=== PATIENT | male | born 1965 | race Caucasian/White ===

== ENCOUNTER 2019-02-15 10:14 | Emergency (ER) | payer BC ==
[2019-02-15] MEDS ORDERED: Sodium Chloride 0.9% 10 ML Syringe FLUSH PRN (10:17)
[2019-02-15 10:33] VITALS: BP 137/76; PULSE 71
[2019-02-15] MEDS ORDERED: Aspirin 81 MG Tab.Chew PO ONE (10:34)
[2019-02-15 10:52] LABS: ANION GAP 12.8; CHLORIDE,CL 100 mmol/L (101-111); SODIUM,NA 135 mmol/L (135-145)
--- NOTE | 2019-02-15 10:58 | CR ---
EXAMINATION: Chest 1V Frontal SEX: Male AGE: 53 years CLINICAL HISTORY: 53-year-old male emergency department complaining of chest pain. INTERPRETATION: No comparison films. Reasonable inspiratory, effort large body habitus. 1. Normal cardiac silhouette without cephalization of vascular flow, alveolar edema or dependent effusion. 2. No lung mass, hilar lymphadenopathy or focal lobar pneumonia. 3. No infiltrate/atelectasis or collapse. 4. No pneumothorax, pneumomediastinum or free subdiaphragmatic air. 5. No foreign bodies. Yi thorax unremarkable (single AP projection). CONCLUSION: No acute cardiopulmonary abnormality.
[2019-02-15] MEDS ORDERED: Iopamidol 755 Mg/ML 100 ML Bottle IVPUSH ONE (11:17)
--- NOTE | 2019-02-15 11:31 | EDM.PDOC ---
ED HPI GENERAL MEDICAL PROBLEM - General Chief Complaint: Chest Pain Stated Complaint: CHEST PAIN AND BACK PAIN Time Seen by Provider: 02/15/19 10:35 Source of Information: Reports: Patient, RN, RN Notes Reviewed History Limitations: Reports: No Limitations - History of Present Illness INITIAL COMMENTS - FREE TEXT/NARRATIVE: Patient presents to ER with complaint of chest and back pain. patient states he awoke at 0700 today with mid thoracic muscle pain began to wrap around the back to the midepigastric area. Denies N/V/D. last bowel movement yesterday normal for him. States history of hypertension for which he takes medications for, and history of stroke-like symptoms in 2014. States he takes a baby aspirin which he took this morning. patient states increased pain on inspiration, and feeling of shortness of breath. Patient denies radiation of pain into the neck, jaw, or left arm. Patient denies recent illness, cough, fever, chills. Admits to history of indigestion at times, denies problems with anxiety, but does admit to high stress levels.rates pain 07/01. Onset: Today, Sudden Duration: Constant Location: Reports: Chest, Abdomen, Back Quality: Reports: Dull, Pressure Severity: Moderate Improves with: Reports: None Right Chest Pain Score (Numeric/FACES): 3 - Related Data Allergies Allergy/AdvReac Type Severity Reaction Status Date / Time No Known Allergies Allergy Verified 02/15/19 10:33 Home Meds: Home Meds Aspirin [Halfprin] 81 mg PO DAILY 11/09/17 [History] Lisinopril 10 mg PO DAILY 11/09/17 [History] Metoprolol Succinate 100 mg PO DAILY 11/09/17 [History] amLODIPine Besylate [Amlodipine Besylate] 10 mg PO DAILY 11/09/17 [History] atorvaSTATin Calcium [Atorvastatin Calcium] 80 mg PO BEDTIME 11/09/17 [History] Past Medical History - Past Health History Medical/Surgical History: Denies Medical/Surgical History Cardiovascular History: Reports: High Cholesterol, Hypertension Neurological History: Reports: CVA, Other (See Below) Other Neuro History: HYPERTENSIVE ENCEPHALOPATHY Endocrine/Metabolic History: Reports: Obesity/BMI 30+ Dermatologic History: Reports: Other (See Below) Other Dermatologic History: ACTINIC KERATOSIS - Past Surgical History Neurological Surgical History: Reports: None Musculoskeletal Surgical History: Reports: Arthroscopic Knee Social & Family History - Tobacco Use Smoking Status *Q: Former Smoker Years of Tobacco use: 0 Packs/Tins Daily: 0 Used Tobacco, but Quit: Yes Month/Year Tobacco Last Used: 2014 - Alcohol Use Days Per Week of Alcohol Use: 1 Number of Drinks Per Day: 5 Total Drinks Per Week: 5 - Recreational Drug Use Recreational Drug Use: No - Living Situation & Occupation Living situation: Reports: , with Family Occupation: Employed ED ROS GENERAL - Review of Systems Review Of Systems: ROS reveals no pertinent complaints other than HPI. ED EXAM, GENERAL - Physical Exam Exam: See Below Exam Limited By: No Limitations General Appearance: Alert, WD/WN, Mild Distress Eye Exam: Bilateral Eye: EOMI, Normal Inspection Ears: Normal External Exam, Hearing Grossly Normal Nose: Normal Inspection Throat/Mouth: Normal Inspection, Normal Voice, No Airway Compromise Head: Atraumatic, Normocephalic Neck: Normal Inspection, Supple, Non-Tender, Limited Range of Motion Respiratory/Chest: No Respiratory Distress, Lungs Clear, Normal Breath Sounds, No Accessory Muscle Use, Other (tender midsternal/midepigastric area) Cardiovascular: Normal Peripheral Pulses, Regular Rate, Rhythm, No Edema, No Gallop, No JVD, No Murmur, No Rub Peripheral Pulses: 2+: Radial (L), Radial (R) GI/Abdominal: Normal Bowel Sounds, Soft, Tender (tender midepigastric) (Male) Exam: Deferred Rectal (Males) Exam: Deferred Back Exam: Normal Inspection, Full Range of Motion, Paraspinal Tenderness ( right midthoracic), Other (tender midthoracic to the right of the spine) Extremities: Normal Inspection, Normal Range of Motion, Non-Tender, Normal Capillary Refill, No Pedal Edema Neurological: Alert, Oriented, CN II-XII Intact, Normal Cognition, Normal Gait, Normal Reflexes, No Motor/Sensory Deficits Psychiatric: Normal Affect, Normal Mood, Anxious Skin Exam: Warm, Dry, Intact, Normal Color, No Rash Lymphatic: No Adenopathy Course - Vital Signs Last Recorded V/S: Last Vital Signs Temp 97.5 F 02/15/19 10:28 Pulse 71 02/15/19 10:28 Resp 20 02/15/19 10:28 BP 137/76 02/15/19 10:28 Pulse Ox 97 02/15/19 10:28 - Orders/Labs/Meds Orders: Active Orders 24 hr Category Date Time Status EKG Documentation Completion [RC] STAT Care 02/15/19 10:16 Active Peripheral IV Care [RC] . DIRECTED Care 02/15/19 10:17 Active Peripheral IV Insertion Adult [OM.PC] Stat Oth 02/15/19 10:16 Ordered Labs: Laboratory Tests 02/15/19 02/15/19 02/15/19 Range/Units 10:26 10:26 10:26 WBC 15.4 H (5.0-10.0) 10^3/uL RBC 5.08 (4.6-6.2) 10^6/uL Hgb 16.6 (14.0-18.0) g/dL Hct 48.3 (40.0-54.0) % MCV 95.1 (80-100) fL MCH 32.7 (27.0-34.0) pg MCHC 34.4 (33.0-35.0) g/dL Plt Count 204 (150-450) 10^3/uL Neut % (Auto) 84.5 H (42.2-75.2) % Lymph % (Auto) 7.1 L (20.5-50.1) % [place] % (Auto) 7.6 (2-8) % Eos % (Auto) 0.5 L (1.0-3.0) % Baso % (Auto) 0.3 (0.0-1.0) % PT 9.1 (9.0-12.0) SEC INR 0.9 (0.9-1.2) D-Dimer, Quantitative (0-400) ng/mL Sodium 135 (135-145) mmol/L Potassium 3.8 (3.6-5.0) mmol/L Chloride 100 L (101-111) mmol/L Carbon Dioxide 26.0 (21.0-31.0) mmol/L Anion Gap 12.8 BUN 19 H (7-18) mg/dL Creatinine 1.0 (0.6-1.3) mg/dL Est Cr Clr Drug Dosing 98.18 mL/min Estimated GFR (MDRD) > 60 BUN/Creatinine Ratio 19.00 Glucose 115 H (74-105) mg/dL Calcium 9.2 (8.4-10.2) mg/dl Total Bilirubin 0.8 (0.2-1.0) mg/dL AST 23 (10-42) IU/L ALT 27 (10-60) IU/L Alkaline Phosphatase 59 (42-121) IU/L Troponin I < 0.02 (0.00-0.02) ng/ml Total Protein 7.6 (6.7-8.2) g/dl Albumin 4.3 (3.2-5.5) g/dl Globulin 3.3 Albumin/Globulin Ratio 1.30 Amylase (28-100) U/L Lipase (22-51) U/L 02/15/19 02/15/19 Range/Units 10:26 10:26 WBC (5.0-10.0) 10^3/uL RBC (4.6-6.2) 10^6/uL Hgb (14.0-18.0) g/dL Hct (40.0-54.0) % MCV (80-100) fL MCH (27.0-34.0) pg MCHC (33.0-35.0) g/dL Plt Count (150-450) 10^3/uL Neut % (Auto) (42.2-75.2) % Lymph % (Auto) (20.5-50.1) % [place] % (Auto) (2-8) % Eos % (Auto) (1.0-3.0) % Baso % (Auto) (0.0-1.0) % PT (9.0-12.0) SEC INR (0.9-1.2) D-Dimer, Quantitative 658 H (0-400) ng/mL Sodium (135-145) mmol/L Potassium (3.6-5.0) mmol/L Chloride (101-111) mmol/L Carbon Dioxide (21.0-31.0) mmol/L Anion Gap BUN (7-18) mg/dL Creatinine (0.6-1.3) mg/dL Est Cr Clr Drug Dosing mL/min Estimated GFR (MDRD) BUN/Creatinine Ratio Glucose (74-105) mg/dL Calcium (8.4-10.2) mg/dl Total Bilirubin (0.2-1.0) mg/dL AST (10-42) IU/L ALT (10-60) IU/L Alkaline Phosphatase (42-121) IU/L Troponin I (0.00-0.02) ng/ml Total Protein (6.7-8.2) g/dl Albumin (3.2-5.5) g/dl Globulin Albumin/Globulin Ratio Amylase 44 (28-100) U/L Lipase 43 (22-51) U/L Meds: Medications Discontinued Medications Generic Name Dose Route Start Last Admin Trade Name Freq PRN Reason Stop Dose Admin Aspirin 324 mg 02/15/19 10:34 02/15/19 10:38 Aspirin PO 02/15/19 10:35 324 mg ONETIME ONE Administration Piperacillin Sod/Tazobactam 100 mls @ 200 mls/hr 02/15/19 14:42 02/15/19 14: 54 Sod 3.375 gm/ Sodium Chloride IV 02/15/19 15:11 200 mls/hr ONETIME ONE Administration Iopamidol 100 ml 02/15/19 11:17 02/15/19 12:13 Isovue-370 (76%) IVPUSH 02/15/19 11:18 100 ml ONETIME ONE Administration Sodium Chloride 10 ml 02/15/19 10:17 02/15/19 10:38 Saline Flush FLUSH 10 ml ASDIRECTED PRN Administration Keep Vein Open - Radiology Interpretation Free Text/Narrative:: chest x-ray: No acute cardiopulmonary abnormality See rad report CT chest/abdomen/pelvis with contrast: no sign of pulmonary embolic disease or infarct. No aneurysm of the thoracic or abdominal aorta. Solitary right renal cyst. Chronic hypertrophic arthritic changes of the spine ( spondylosis). distended gallbladder. No sign of primary or metastatic malignancy. No mechanical bowel obstruction or acute peritonitis. Gallbladder US: acute cholecystitis See rad report - Re-Assessments/Exams Free Text/Narrative Re-Assessment/Exam: 02/15/19 16:08 discussed patient case with Dr. BASS at [facility] in [place]. He accepted the patient for transfer to [place]. discussed transferring the patient her POV to [place] with his son. Accepting physician is okay with this, as there are no available transporting ambulances at this time, patient is stable, and reliable to go directly to the hospital and [place]. Departure - Departure Time of Disposition: 15:59 Disposition: Home, Self-Care 01 Reason for Transfer *Q: Other Condition: Fair Clinical Impression: Acute cholecystitis Referrals: PCP,Unobtain [Primary Care Provider] - Forms: ED Department Discharge, Interfacility Transfer AYAN - My Orders Last 24 Hours: My Active Orders 02/15/19 10:16 EKG Documentation Completion [RC] STAT Peripheral IV Insertion Adult [OM.PC] Stat 02/15/19 10:17 Peripheral IV Care [RC] . DIRECTED - Assessment/Plan Last 24 Hours: My Active Orders 02/15/19 10:16 EKG Documentation Completion [RC] STAT Peripheral IV Insertion Adult [OM.PC] Stat 02/15/19 10:17 Peripheral IV Care [RC] . DIRECTED
--- NOTE | 2019-02-15 13:09 | CT ---
EXAMINATION: Chest Abdomen Pelvis w Cont SEX: Male AGE: 53 years CLINICAL HISTORY: 53-year-old hypertensive 301 pound male with pain and WBC 15,400. (D-dimer 658). Rule out PE, AAA Scan technique: Volume acquisition of data from the chest, abdomen and pelvis obtained without oral contrast but during (chest) and after (delayed imaging abdomen) intravenous infusion 125 cc nonionic Isovue contrast (5 cc/s via injector per PE protocol) while patient lying supine on the Siemens multislice scanner [place], [place]. All data archived in the PACS system for storage, reformatting axial/sagittal/coronal planes and study (lung/soft tissue/bone windows). Interpretation: CHEST: Normal cardiac silhouette and pulmonary vascularity without sign of alveolar edema or dependent effusion. No intraluminal filling defect or thrombus pulmonary artery circulation. No abnormal focal lobar oligemia, infiltrate/atelectasis, peripheral pleural-based wedge shaped infarcts, or pleural effusions i.e. low probability pulmonary embolism. Multilevel disc disease and hypertrophic arthritic changes of the mid dorsal spine. No new nodules or parenchymal lung mass lesion. No hilar or mediastinal lymphadenopathy. Normal caliber thoracic aorta IE no aneurysm or dissection. ABDOMEN/PELVIS: Gallbladder distended RUQ and inhomogeneously dense. Liver, stomach, spleen, pancreas and adrenal glands unremarkable. Solitary large 4.5 cm diameter simple cyst upper pole cortex right kidney. No other renal cortical mass lesion and no signs of nephrolithiasis or obstructive uropathy. Near empty urinary bladder with uniformly thick wall. Prostate gland with calcifications (Ca++). No abdominal or pelvic mass lesion, pelvic/mesenteric/retroperitoneal lymphadenopathy, inflammatory "dirty" peritoneal fat, signs of mechanical bowel obstruction, ascites or free intraperitoneal air. Calcifications normal caliber abdominal aorta. No ventral wall or inguinal hernias. CONCLUSION: No sign of pulmonary embolic disease or infarct. No aneurysm of the thoracic or abdominal aorta. Solitary right renal cyst. Chronic hypertrophic arthritic changes (spondylosis) of the spine. Distended gallbladder. No sign of primary or metastatic malignancy. No mechanical bowel obstruction or acute peritonitis.
[2019-02-15] MEDS ORDERED: Piperacillin/Tazobactam 3.375 GM in Sodium Chloride 0.9% 100 ML IV ONE (14:42)
--- NOTE | 2019-02-15 14:47 | US ---
EXAMINATION: Abdomen Ltd SEX: Male AGE: 53 years CLINICAL HISTORY: 53-year-old 301 pound male with back pain and suspicious gallbladder (CT) . WBC 15.4 (RUQ back pain). INTERPRETATION: 1. Gallbladder distended right upper quadrant shows signs of pericystic fluid. Acute inflammation? No mucosal wall polyp or discrete dependent intraluminal echogenic "shadowing" gallstones. Gallbladder wall thickened (4.6 mm). 2. Fatty liver normal anatomic configuration. No abnormal dilatation of the intra or extrahepatic biliary ducts. 3. Pancreas unremarkable. CONCLUSION: Acute CHOLECYSTITIS.
== END 2019-02-15 16:01 | disposition home or self-care (01) ==
LOC: DL.ED 10:14
DX: K81.0 Acute cholecystitis (principal); I10 Essential (primary) hypertension; E78.00 Pure hypercholesterolemia, unspecified; E66.9 Obesity, unspecified; Z86.73 Personal history of transient ischemic attack (TIA), and cerebral infarction without residual deficits; Z87.891 Personal history of nicotine dependence
CPT/HCPCS: 36415; 71045; 71260; 74177; 76705; 80053; 82150; 83690; 84484; 85025; 85379; 85610; 93005; 96365; 99285; A9270; J2543; J7050; Q9967

== ENCOUNTER 2019-11-13 20:05 | Emergency (ER) | payer BC ==
[2019-11-13] MEDS: EPINEPHrine 1:10,000 1 MG/10 ML Syringe ONE (20:24)
[2019-11-13] MEDS: diphenhydrAMINE 50 MG/ML SDV IVPUSH ONE (20:25)
[2019-11-13] MEDS: methylPREDNISolone Sodium Succinate 125 MG/2 ML SDV IVPUSH ONE (20:25)
[2019-11-13] MEDS: EPINEPHrine 1 MG/ML SDV IM ONE (20:26)
[2019-11-13] MEDS: diphenhydrAMINE 50 MG Cap PO ONE (20:27)
[2019-11-13 20:44] VITALS: PULSE 68
[2019-11-13 20:48] VITALS: BP 152/89
[2019-11-13 20:55] LABS: ANION GAP 15.7 mEq/L (7-13); CHLORIDE,CL 101 mmol/L (98-107); SODIUM,NA 138 mmol/L (136-145)
[2019-11-13] MEDS: EPINEPHrine 1 MG/1 ML Amp ONE (21:06)
[2019-11-13] MEDS: Famotidine 20 MG/2 ML SDV IVPUSH ONE (21:06)
--- NOTE | 2019-11-13 21:20 | EDM.PDOC ---
ED HPI GENERAL MEDICAL PROBLEM - General Chief Complaint: Allergic Reaction Stated Complaint: JAW/FACIAL SWELLING Time Seen by Provider: 11/13/19 20:10 Source of Information: Reports: Patient History Limitations: Reports: No Limitations - History of Present Illness INITIAL COMMENTS - FREE TEXT/NARRATIVE: tongue started itching around 5pm then swelling noted. Reports only thing different was drinking a can of coke prior to onset of sx. No prior similar events. On ERI- lisinopril for many years. Denies any difficulty swallowing - Related Data Allergies Allergy/AdvReac Type Severity Reaction Status Date / Time No Known Allergies Allergy Verified 11/13/19 20:44 Home Meds: Home Meds Aspirin [Halfprin] 81 mg PO DAILY 11/09/17 [History] Lisinopril 10 mg PO DAILY 11/09/17 [History] Metoprolol Succinate 100 mg PO DAILY 11/09/17 [History] amLODIPine Besylate [Amlodipine Besylate] 10 mg PO DAILY 11/09/17 [History] atorvaSTATin Calcium [Atorvastatin Calcium] 80 mg PO BEDTIME 11/09/17 [History] Past Medical History - Past Health History Medical/Surgical History: Denies Medical/Surgical History Cardiovascular History: Reports: High Cholesterol, Hypertension Neurological History: Reports: CVA, Other (See Below) Other Neuro History: HYPERTENSIVE ENCEPHALOPATHY Endocrine/Metabolic History: Reports: Obesity/BMI 30+ Dermatologic History: Reports: Other (See Below) Other Dermatologic History: ACTINIC KERATOSIS - Past Surgical History Neurological Surgical History: Reports: None Musculoskeletal Surgical History: Reports: Arthroscopic Knee Social & Family History - Tobacco Use Smoking Status *Q: Never Smoker Second Hand Smoke Exposure: No - Caffeine Use Caffeine Use: Reports: Coffee - Recreational Drug Use Recreational Drug Use: No - Living Situation & Occupation Living situation: Reports: , with Family Occupation: Employed ED ROS ALLERGIC REACTION - Review of Systems Review Of Systems: Comprehensive ROS is negative, except as noted in HPI. ED EXAM GENERAL NO PERIP PULSE - Physical Exam Exam: See Below Exam Limited By: No Limitations General Appearance: Alert, Moderate Distress Eye Exam: Bilateral Eye: EOMI Ears: Normal External Exam Nose: Normal Inspection Throat/Mouth: Other ( Grossly swollen tongue, tolerating secretions able to speak). No: Normal Oropharynx, Normal Voice Neck: Normal Inspection, Full Range of Motion Respiratory/Chest: No Respiratory Distress, Lungs Clear, Normal Breath Sounds Cardiovascular: Normal Peripheral Pulses, Regular Rate, Rhythm GI/Abdominal: Normal Bowel Sounds Back Exam: Normal Inspection Extremities: Normal Inspection Psychiatric: Normal Affect Skin Exam: Warm, Dry, Intact, Normal Color Course - Vital Signs Last Recorded V/S: Last Vital Signs Temp 98.4 F 11/13/19 20:47 Pulse 68 11/13/19 20:47 Resp 16 11/13/19 20:47 BP 152/89 H 11/13/19 20:47 Pulse Ox 97 11/13/19 20:47 - Orders/Labs/Meds Labs: Laboratory Tests 11/13/19 11/13/19 11/13/19 Range/Units 20:23 20:23 20:23 WBC 8.0 (5.0-10.0) 10^3/uL RBC 4.77 (4.6-6.2) 10^6/uL Hgb 15.2 (14.0-18.0) g/dL Hct 46.1 (40.0-54.0) % MCV 96.6 (80-100) fL MCH 31.9 (27.0-34.0) pg MCHC 33.0 (33.0-35.0) g/dL Plt Count 194 (150-450) 10^3/uL Neut % (Auto) 66.2 (42.2-75.2) % Lymph % (Auto) 20.0 L (20.5-50.1) % [place] % (Auto) 10.1 H (2-8) % Eos % (Auto) 3.3 H (1.0-3.0) % Baso % (Auto) 0.4 (0.0-1.0) % Sodium 138 (136-145) mmol/L Potassium 3.7 (3.5-5.1) mmol/L Chloride 101 (98-107) mmol/L Carbon Dioxide 25 (21-32) mmol/L Anion Gap 15.7 H (7-13) mEq/L BUN 20 H (7-18) mg/dL Creatinine 1.10 (0.70-1.30) mg/dL Est Cr Clr Drug Dosing 88.22 mL/min Estimated GFR (MDRD) > 60 BUN/Creatinine Ratio 18.2 (No establ ref range) Glucose 96 (74-99) mg/dL Lactic Acid 1.3 (0.4-2.0) mmol/L Calcium 9.1 (8.5-10.1) mg/dL Total Bilirubin 0.3 (0.2-1.0) mg/dL AST 26 (15-37) U/L ALT 43 (16-63) U/L Alkaline Phosphatase 107 (46-116) U/L Total Protein 7.5 (6.4-8.2) g/dL Albumin 4.0 (3.4-5.0) g/dL Globulin 3.5 Albumin/Globulin Ratio 1.1 Meds: Medications Discontinued Medications Generic Name Dose Route Start Last Admin Trade Name Freq PRN Reason Stop Dose Admin Diphenhydramine HCl 50 mg 11/13/19 20:12 11/13/19 20:27 Benadryl PO 11/13/19 20:13 Not Given ONETIME ONE Diphenhydramine HCl 25 mg 11/13/19 20:18 11/13/19 20:25 Benadryl IVPUSH 11/13/19 20:19 25 mg ONETIME ONE Administration Epinephrine HCl 0.3 mg 11/13/19 20:12 11/13/19 20:26 Adrenalin IM 11/13/19 20:13 0.3 mg ONETIME ONE Administration Epinephrine HCl Confirm 11/13/19 20:20 11/13/19 20:24 Epinephrine 1:10,000 Administered 11/13/19 20:21 Not Given Dose 1 mg .ROUTE .STK-MED ONE Epinephrine HCl Confirm 11/13/19 20:56 11/13/19 21:06 Adrenalin Administered 11/13/19 20:57 Not Given Dose 1 mg .ROUTE .STK-MED ONE Famotidine 20 mg 11/13/19 21:00 11/13/19 21:06 Pepcid IVPUSH 11/13/19 21:01 20 mg ONETIME ONE Administration Methylprednisolone Sodium Succinate 125 mg 11/13/19 20:12 11/13/19 20:25 Solu-Medrol IVPUSH 11/13/19 20:13 125 mg ONETIME ONE Administration - Re-Assessments/Exams Free Text/Narrative Re-Assessment/Exam: 11/14/19 04:26 Findings discussed with patient. Dr Ash Harmon accepting patient. Departure - Departure Time of Disposition: 22:10 Disposition: DC/Tfer to Acute Hospital 02 Condition: Fair Clinical Impression: Angio-edema Qualifiers: Encounter type: initial encounter Qualified Code(s): T78.3XXA - Angioneurotic edema, initial encounter - Discharge Information *PRESCRIPTION DRUG MONITORING PROGRAM REVIEWED*: No *COPY OF PRESCRIPTION DRUG MONITORING REPORT IN PATIENT MIGUELITO: No Referrals: PCP,Unobtain [Primary Care Provider] - Forms: ED Department Discharge Sepsis Event Note (ED) - Evaluation Sepsis Screening Result: No Definite Risk - Focused Exam Vital Signs: Vital Signs Temp Pulse Resp BP Pulse Ox 11/13/19 20:47 98.4 F 68 16 152/89 H 97 11/13/19 20:10 98.3 F 68 16 170/91 H 99
== END 2019-11-13 22:12 ==
LOC: DL.ED 20:05
DX: T78.3XXA Angioneurotic edema, initial encounter (principal); I10 Essential (primary) hypertension; E66.9 Obesity, unspecified; Z68.41 Body mass index [BMI] 40.0-44.9, adult; Z79.82 Long term (current) use of aspirin; Z79.899 Other long term (current) drug therapy
CPT/HCPCS: 36415; 80053; 83605; 85025; 96372; 96374; 96375; 99284; J0171; J1200; J2930; J3490

== ENCOUNTER 2019-12-03 10:31 | Emergency (ER) | payer BC | END 2019-12-03 11:33 | LOC: DL.ED 10:31 | DX: Z53.21 Procedure and treatment not carried out due to patient leaving prior to being seen by health care provider (principal) ==